=== PATIENT | male | born 1940 ===

== ENCOUNTER 2017-12-22 10:47 | Observation (INO) | payer BC ==
[2017-12-22 11:51] LABS: BASO % 0.5 % (0.0-2.0); EOS # 0.2 K/uL (0.0-0.7); HEMOGLOBIN 14.3 g/dL (12.0-18.0); LYMPH # 1.6 K/uL (1.0-4.3); LYMPH % 32.5 % (20.0-40.0); MEAN CELL VOLUME 90.1 fL (80.0-94.0); MEAN CORPUSCULAR HEMOGLOBIN 31.6 pg (27.0-31.0); MEAN PLATELET VOLUME 8.6 fL (7.2-11.7); MONO # 0.4 K/uL (0.0-0.8); MONO % 8.4 % (0.0-10.0); NEUT # 2.6 K/uL (1.8-7.0); NEUT % 54.6 % (50.0-75.0); RBC 4.52 Mil/uL (4.40-5.90); RED CELL DISTRIBUTION WIDTH 14.6 % (11.5-14.5); WHITE BLOOD COUNT 4.8 K/uL (4.8-10.8)
[2017-12-22 12:02] LABS: PROTHROMBIN TIME 10.8 SECONDS (9.7-12.2)
[2017-12-22 12:04] LABS: ALBUMIN 3.9 g/dL (3.5-5.0); ALT/SGPT 15 U/L (21-72); AST/SGOT 19 U/L (17-59); BLOOD UREA NITROGEN 22 mg/dL (9-20); CALCIUM 8.4 mg/dl (8.6-10.4); GFR AFRICAN-AMERICAN > 60; GFR NON-AFRICAN AMERICAN > 60
[2017-12-22 12:17] LABS: B-TYPE NATRIURETIC PEPTIDE 38.6 pg/mL (0-900); CK-MB 0.49 ng/mL (0.0-3.38)
[2017-12-22] MEDS ORDERED: Aspirin 325 mg EC Tablets PO ONE (13:01)
--- NOTE | 2017-12-22 13:35 | C.PDOC ---
History Of Present Illness 77-year-old male presents to the emergency department with complaints of intermittent palpitations, shortness of breath and pain in the left arm radiating to his jaw x1 week. Patient has no known medical problems, but has not seen a doctor in "years." He denies cough, fever, falls/injuries, abdominal pain, nausea/vomiting. Time Seen by Provider: 12/22/17 10:56 Chief Complaint (Nursing): Palpitations History Per: Patient History/Exam Limitations: no limitations Current Symptoms Are (Timing): Still Present Severity: Moderate Past Medical History Reviewed: Historical Data, Nursing Documentation, Vital Signs Vital Signs: Last Vital Signs Temp 98 F 12/23/17 15:53 Pulse 64 12/23/17 15:53 Resp 18 12/23/17 15:53 BP 129/74 12/23/17 15:53 Pulse Ox 95 12/23/17 15:53 - Medical History PMH: No Chronic Diseases Surgical History: Appendectomy Family History: States: No Known Family Hx - Social History Hx Alcohol Use: Yes Hx Substance Use: No - Immunization History Hx Tetanus Toxoid Vaccination: No Hx Influenza Vaccination: No Hx Pneumococcal Vaccination: No Review Of Systems Except As Marked, All Systems Reviewed And Found Negative. Constitutional: Negative for: Fever, Chills Cardiovascular: Positive for: Palpitations. Negative for: Chest Pain Respiratory: Positive for: Shortness of Breath. Negative for: Cough Gastrointestinal: Negative for: Nausea, Vomiting, Abdominal Pain Genitourinary: Negative for: Rash Musculoskeletal: Positive for: Arm Pain, Other (jaw pain). Negative for: Neck Pain, Back Pain Skin: Negative for: Rash Neurological: Negative for: Weakness, Numbness, Headache, Dizziness Physical Exam - Physical Exam Appears: Well, Non-toxic, No Acute Distress Skin: Normal Color, Warm, Dry, No Rash Head: Normacephalic Eye(s): bilateral: Normal Inspection Oral Mucosa: Moist Cardiovascular: Rhythm Regular Respiratory: Normal Breath Sounds, No Rales, No Rhonchi, No Wheezing Gastrointestinal/Abdominal: Normal Exam, Bowel Sounds, Soft, No Tenderness Back: Normal Inspection, No CVA Tenderness Extremity: No Pedal Edema, No Calf Tenderness Neurological/Psych: Oriented x3 ED Course And Treatment - Laboratory Results Result Diagrams: 12/23/17 07:58 12/23/17 07:50 ECG: Interpreted By Me, Viewed By Me (NSR 62 bpm, normal axis, no acute ST/T wave changes) ECG Rhythm: Sinus Rhythm ECG Interpretation: Normal Rate From EC O2 Sat by Pulse Oximetry: 98 (RA) Pulse Ox Interpretation: Normal Progress Note: Bloodwork EKG ordered and reviewed. Patient given PO Aspirin. Symptoms concerning for cardiac etiology of pain, and patient has no PMD/ anesthesia attending. Will keep for chest pain observation. - Physician Consult Information Physician Contacted: Li Macias Outcome Of Conversation: Discussed patient with medicine internal control consultant, agrees with obs tele for chest pain, palpitations, dyspnea. Disposition - Disposition Disposition: HOSPITALIZED Disposition Time: 15:00 Condition: STABLE - Clinical Impression Clinical Impression: Chest pain, Dyspnea, Palpitations - Scribe Statement The provider has reviewed the documentation as recorded by the Scribe (Najma Resendiz) All medical record entries made by the Scribe were at my direction and personally dictated by me. I have reviewed the chart and agree that the record accurately reflects my personal performance of the history, physical exam, medical decision making, and the department course for this patient. I have also personally directed, reviewed, and agree with the discharge instructions and disposition. Decision To Admit - Pt Status Changed To: Hospital Disposition Of: Observation - . Bed Request Type: Telemetry Admitting Physician: Li Macias Patient Diagnosis: Palpitations, Chest pain, Dyspnea
[2017-12-22 22:38] LABS: CK-MB 0.42 ng/mL (0.0-3.38)
[2017-12-23 03:56] LABS: CK-MB 0.33 ng/mL (0.0-3.38)
--- NOTE | 2017-12-23 07:59 | CP.PCM.CON ---
<Ortiz Nash - Last Filed: 12/23/17 14:40> History of Present Illness - History of Present Illness History of Present Illness: Cardiology Consult note for Dr. Tirso Nash PGY-1 CC: Chest Pain HPI: Patient is a 77 year old male with reports no significant medical history who presented to [facility] ED complaining of 1 week of pain in his left neck and 2 day history of chest pain. Patient reports that he has been experiencing intermittent sharp mid-sternal chest pain rated 4/10 with out radiation of pain for the past two days. Patient indicates that he has never experienced similar chest pain for this long. 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 He denies shortness of breath with this presentation or prior to arrival. Associated symptoms include palpitations for which have been ongoing for at least the past week. Patient reports intermittent episodes associated with rest and activity. Pt denies any hx of arrhythmia or atrial fibrillation. Patient reports he has not seen a doctor in a long time and has not been evaluated medically. Patient denies any recent trauma, sudden movements , muscle strain, headache, change in vision, shortness of breath, abdominal pain , leg swelling, nausea, vomiting, fever, chills, diarrhea or constipation. 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 Review of Systems - Review of Systems All systems: reviewed and no additional remarkable complaints except (as mentioned in HPI) Past Patient History - Past Social History Smoking Status: Former Smoker Alcohol: Social Drugs: Denies - PSYCHIATRIC Hx Substance Use: No - SURGICAL HISTORY Hx Appendectomy: Yes - ANESTHESIA Hx Anesthesia: Yes Hx Anesthesia Reactions: No Meds Allergies/Adverse Reactions: Allergies Allergy/AdvReac Type Severity Reaction Status Date / Time Penicillins Allergy ANAPHYLAXIS Verified 12/22/17 10:55 - Medications Medications: Current Medications Aspirin (Aspirin) 325 mg PO DAILY DNATE Enoxaparin Sodium (Lovenox) 40 mg SC DAILY DANTE Famotidine (Pepcid) 40 mg PO DAILY DANTE Physical Exam - Constitutional Appears: Non-toxic, No Acute Distress - Head Exam Head Exam: ATRAUMATIC, NORMAL INSPECTION, NORMOCEPHALIC - Eye Exam Eye Exam: EOMI, PERRL - ENT Exam ENT Exam: Mucous Membranes Moist - Respiratory Exam Respiratory Exam: Clear to Auscultation Bilateral, NORMAL BREATHING PATTERN. absent: Rhonchi, Wheezes, Stridor - Cardiovascular Exam Cardiovascular Exam: +S1, +S2. absent: Irregular Rhythm - GI/Abdominal Exam GI & Abdominal Exam: Normal Bowel Sounds, Soft. absent: Firm, Guarding, Tenderness - Extremities Exam Extremities exam: Positive for: normal inspection, pedal pulses present. Negative for: calf tenderness, pedal edema, tenderness - Neurological Exam Neurological exam: Alert, CN II-XII Intact, Normal Gait, Oriented x3, Reflexes Normal - Psychiatric Exam Psychiatric exam: Normal Affect, Normal Mood - Skin Skin Exam: Dry, Intact Results - Vital Signs Recent Vital Signs: Last Vital Signs Temp 98.2 F 12/23/17 00:00 Pulse 67 12/23/17 01:00 Resp 22 12/23/17 00:00 BP 172/89 H 12/22/17 20:53 Pulse Ox 97 12/23/17 00:00 - Labs Result Diagrams: 12/23/17 07:58 12/23/17 07:50 Labs: Laboratory Results - last 24 hr 12/22/17 12/22/17 12/22/17 11:42 11:42 11:42 WBC 4.8 RBC 4.52 Hgb 14.3 Hct 40.7 MCV 90.1 MCH 31.6 H MCHC 35.0 RDW 14.6 H Plt Count 198 MPV 8.6 Neut % (Auto) 54.6 Lymph % (Auto) 32.5 Barry % (Auto) 8.4 Eos % (Auto) 4.0 Baso % (Auto) 0.5 Neut # (Auto) 2.6 Lymph # (Auto) 1.6 Barry # (Auto) 0.4 Eos # (Auto) 0.2 Baso # (Auto) 0.0 PT 10.8 INR 1.0 APTT 33 Sodium 137 Potassium 4.1 Chloride 102 Carbon Dioxide 24 Anion Gap 15 BUN 22 H Creatinine 0.8 Est GFR ( Amer) > 60 Est GFR (Non-Af Amer) > 60 Random Glucose 118 H Calcium 8.4 L Total Bilirubin 0.6 AST 19 ALT 15 L Alkaline Phosphatase 82 Total Creatine Kinase 56 CK-MB (Mass) 0.49 Troponin I 0.0140 NT-Pro-B Natriuret Pep 38.6 Total Protein 8.0 Albumin 3.9 Globulin 4.1 H Albumin/Globulin Ratio 1.0 TSH 3rd Generation 12/22/17 12/22/17 12/23/17 12:54 22:12 03:29 WBC RBC Hgb Hct MCV MCH MCHC RDW Plt Count MPV Neut % (Auto) Lymph % (Auto) Barry % (Auto) Eos % (Auto) Baso % (Auto) Neut # (Auto) Lymph # (Auto) Barry # (Auto) Eos # (Auto) Baso # (Auto) PT INR APTT Sodium Potassium Chloride Carbon Dioxide Anion Gap BUN Creatinine Est GFR ( Amer) Est GFR (Non-Af Amer) Random Glucose Calcium Total Bilirubin AST ALT Alkaline Phosphatase Total Creatine Kinase 53 L 49 L CK-MB (Mass) 0.42 0.33 Troponin I < 0.0120 < 0.0120 NT-Pro-B Natriuret Pep Total Protein Albumin Globulin Albumin/Globulin Ratio TSH 3rd Generation 1.16 Assessment & Plan - Assessment and Plan (Free Text) Assessment: 77 year old male with no significant past medical history who presents to [facility] ED by complaining of 1 week history of left sided neck pain and 2 day history of mid-sternal chest pain. Patient initial EKG shows normal sinus rhythm with no ST elevations or depressions, troponins negative x3. Patient is admitted to medical/surgical floor for continued medical management and evaluation. Plan: 1. Chest Pain Details: - History of 1 week of left sided neck pain, 2 day history of chest pain - History of chest discomfort with physical activity - ASA given in ED, Lovenox DVT ppx - Risk Factors include previous smoking, age - Troponin negative x3 Plan: - follow up pending labwork - further work up of chest pain etiology with inpatient stress test - Walking stress test initial interpretation is benign - medically manage patient at this time - Place patient on ASA, beta valerio, and statin - Follow up in office outpatient 2. Palpitations Details: -1 week history of palpitations -denies previous episodes - EKG showing normal sinus rhythm, patient currently denying symptoms Plan: -Continue to monitor symptoms and rhythm 3. Hyperlipidemia Details: - Elevated Cholesterol of 204, LDL 109, TG 194, HDL 53 Plan: -moderate to high intensity dose statin due to ASCVD risk >19.3% -diet and exercise 4. Hypertension Details: - BP trended and shown to have elevation vs. normotensive - AM BP 144/89 Plan: -Continue to monitor -HHD, diet and exercise -Beta valerio Will sign off on patient as of now, stable from cardiac standpoint, plan to follow up patient outpatient in office upon discharge DVT ppx: Lovenox, SCDs GI ppx: Pepcid Further recommendations per Dr. Tirso Nash PGY-1 - Date & Time Date: 12/23/17 Time: 07:05 <Tavo Chahal - Last Filed: 12/23/17 18:10> Meds - Medications Medications: Current Medications Aspirin (Aspirin Chewable) 81 mg PO DAILY [facility] Enoxaparin Sodium (Lovenox) 40 mg SC DAILY [facility] Last Admin: 12/23/17 10:18 Dose: 40 mg Famotidine (Pepcid) 40 mg PO DAILY [facility] Last Admin: 12/23/17 10:18 Dose: 40 mg Metoprolol Succinate (Toprol Xl) 25 mg PO DAILY [facility] Rosuvastatin Calcium (Crestor) 10 mg PO [facility] Results - Vital Signs Recent Vital Signs: Last Vital Signs Temp 98 F 12/23/17 15:53 Pulse 64 12/23/17 15:53 Resp 18 12/23/17 15:53 BP 129/74 12/23/17 15:53 Pulse Ox 98 12/23/17 17:31 - Labs Result Diagrams: 12/23/17 07:58 12/23/17 07:50 Labs: Laboratory Results - last 24 hr 12/22/17 12/23/17 12/23/17 22:12 03:29 07:50 WBC RBC Hgb Hct MCV MCH MCHC RDW Plt Count MPV Sodium Potassium Chloride Carbon Dioxide Anion Gap BUN Creatinine Est GFR ( Amer) Est GFR (Non-Af Amer) Random Glucose Hemoglobin A1c Calcium Iron TIBC % Saturation Total Creatine Kinase 53 L 49 L 45 L CK-MB (Mass) 0.42 0.33 0.31 Troponin I < 0.0120 < 0.0120 0.0140 Triglycerides 194 H Cholesterol 204 H LDL Cholesterol Direct 109 HDL Cholesterol 53 Vitamin B12 239 Folate 12.4 TSH 3rd Generation 12/23/17 12/23/17 12/23/17 07:50 07:58 07:58 WBC RBC Hgb Hct MCV MCH MCHC RDW Plt Count MPV Sodium 138 Potassium 4.2 Chloride 103 Carbon Dioxide 23 Anion Gap 16 BUN 19 Creatinine 0.8 Est GFR ( Amer) > 60 Est GFR (Non-Af Amer) > 60 Random Glucose 92 Hemoglobin A1c 5.6 Calcium 8.7 Iron 129 TIBC 355 % Saturation 36 Total Creatine Kinase CK-MB (Mass) Troponin I Triglycerides Cholesterol LDL Cholesterol Direct HDL Cholesterol Vitamin B12 Folate TSH 3rd Generation 2.44 12/23/17 07:58 WBC 3.8 L RBC 4.58 Hgb 14.7 Hct 41.1 MCV 89.7 MCH 32.0 H MCHC 35.7 RDW 14.5 Plt Count 192 MPV 8.6 Sodium Potassium Chloride Carbon Dioxide Anion Gap BUN Creatinine Est GFR ( Amer) Est GFR (Non-Af Amer) Random Glucose Hemoglobin A1c Calcium Iron TIBC % Saturation Total Creatine Kinase CK-MB (Mass) Troponin I Triglycerides Cholesterol LDL Cholesterol Direct HDL Cholesterol Vitamin B12 Folate TSH 3rd Generation Attending/Attestation - Attestation I have personally seen and examined this patient.: Yes I have fully participated in the care of the patient.: Yes I have reviewed all pertinent clinical information: Yes Notes (Text): 12/23/17 18:09 77 year old male presenting with CP Exercise treadmill test using cuco protocol - good tolerance with no evidence of ischemia stable to ia home on asa, bb, statins outpt f/u in 1-2 weeks
[2017-12-23 08:05] LABS: HEMOGLOBIN 14.7 g/dL (12.0-18.0); MEAN CELL VOLUME 89.7 fL (80.0-94.0); MEAN CORPUSCULAR HGB CONC 35.7 g/dL (33.0-37.0); MEAN PLATELET VOLUME 8.6 fL (7.2-11.7); RBC 4.58 Mil/uL (4.40-5.90); RED CELL DISTRIBUTION WIDTH 14.5 % (11.5-14.5); WHITE BLOOD COUNT 3.8 K/uL (4.8-10.8)
[2017-12-23 08:23] LABS: IRON 129 ug/dL (49-181)
[2017-12-23 08:29] LABS: BLOOD UREA NITROGEN 19 mg/dL (9-20); CALCIUM 8.7 mg/dl (8.6-10.4); GFR AFRICAN-AMERICAN > 60; GFR NON-AFRICAN AMERICAN > 60
[2017-12-23 08:33] LABS: CK-MB 0.31 ng/mL (0.0-3.38); TROPONIN I 0.014 ng/mL (0.00-0.120)
[2017-12-23 08:37] LABS: % IRON SATURATION 36 (20-55); TOTAL IRON BINDING CAPACITY 355 ug/dL (250-450)
[2017-12-23 09:26] LABS: FOLATE 12.4 ng/mL
--- NOTE | 2017-12-23 09:40 | HP ---
CHIEF COMPLAINT: Chest pain, palpitation. HISTORY OF PRESENT ILLNESS: Mr. Loredo is a 77-year-old male, came to the emergency department complaining of intermittent palpitation, chest pain, shortness of breath, and pain in the left arm radiating to his jaw since one week. The patient has no known medical problem but has not been seeing doctor in years. The patient denies any cough, fever or chills. No nausea, vomiting, or diarrhea. No hematuria, no hematochezia. No injury to the chest. PAST MEDICAL HISTORY: Appendectomy. FAMILY HISTORY: Father and mother, noncontributory. HABITS: Alcohol, yes. No smoking. No drugs. ALLERGIES: THE PATIENT IS ALLERGIC TO PENICILLIN. HOME MEDICATIONS: Denied. REVIEW OF SYSTEMS: The patient is seen and examined at the bedside, looking comfortable. No nausea, vomiting, or diarrhea. No hematuria or hematochezia. No headache or dizziness. No chest pain. No palpitations. No fever. No chills. PHYSICAL EXAMINATION: VITAL SIGNS: Temperature 97.8, pulse 57, blood pressure 170/89, respiratory rate 18. HEENT: Head, normocephalic and atraumatic. Eyes: PERRLA. Extraocular muscles intact. Conjunctivae clear. Nose patent. NECK: Supple. No carotid bruit. No JVD or thyromegaly. CHEST: Bilaterally symmetrical. HEART: S1 and S2 positive. LUNGS: Clear to auscultation. ABDOMEN: Soft. Bowel sounds positive. No organomegaly. EXTREMITIES: No edema. No cyanosis. NEUROLOGICAL: The patient is awake, alert, moving all four extremities. No focal deficits. LABORATORY DATA: White blood cells 4.8, hemoglobin 14.3, hematocrit 40.7, and platelets 198. Sodium 137, potassium 4.1, BUN 22, creatinine 0.8, glucose 118, calcium 8.4. ASSESSMENT AND PLAN: Mr. Facundo Vega is a 77-year-old male with hyperglycemia, hypocalcemia, came with palpitation, chest pain. Readmitted the patient, did cardiac enzymes x3. History of appendectomy. Called reporting consultant, Dr. Tavo Chahal. We will give aspirin and Protonix. Heart-healthy diet. Gastrointestinal and deep venous thrombosis prophylaxis. We will follow up. Li Macias MD
[2017-12-23] MEDS: Enoxaparin 40 mg Syringe SC SCH (10:18)
--- NOTE | 2017-12-23 15:05 | CARD ---
APPROVED REPORT Protocol: GERRY Test Type: Treadmill Stress Test Test Indications: CHEST PAIN Medications: LIST SCAN Medical History: CHEST PAIN Target HR: 145 bpm Resting ECG: normal Resting Heart Rate: 93 bpm Resting Blood Pressure: 138/80mmHg submaximum (85%): 123 bpm TEST SUMMARY [id number]. EXERCISESTAGE [id number]. EXERCISESTAGE [id number]. EXERCISESTAGE 303:[id number]. EXERCISESTAGE 401:[id number]/.0. [id number]. POST EXERCISE Reason for Termination: Fatigue Target HR: Yes Max HR: 146 bpm 100% of Maximum Predicted HR: 145 bpm Exercise duration: 10:00 min:sec, 4 Stage Exercise capacity: 13.3METs Max Blood Pressure: 198/80mmHg Blood Pressure response to exercise: normal resting BP - appropriate response Heart Rate response to exercise: appropriate Chest Pain: No, none Angina index: 0 Arrhythmia: No, none ST Change: No, none Deviation: 0 mm INTERPRETATION Stress EKG Conclusion: Normal exercise treadmill stress test with no evidence of ischemia Good exercise tolerance
--- NOTE | 2017-12-24 03:08 | PN ---
DATE: SUBJECTIVE: The patient is a 77-year-old male. The patient is seen and examined at the bedside, looking comfortable. No more chest pain. No headache. No dizziness. No palpitation. No swelling of the leg. No fever. No chills. Went for stress test. PHYSICAL EXAMINATION: VITAL SIGNS: Temperature 98, pulse 61, blood pressure 120/74, respiratory rate 18. HEENT: Head, normocephalic and atraumatic. Eyes: PERRLA. Extraocular muscles intact. Conjunctivae clear. Nose patent. Mucous membranes moist. NECK: Supple. No carotid bruit. No JVD or thyromegaly. CHEST: Bilaterally symmetrical. HEART: S1 and S2 positive. LUNGS: Clear to auscultation. ABDOMEN: Soft. Bowel sounds positive. No organomegaly. EXTREMITIES: No edema. No cyanosis. NEUROLOGICAL: The patient is awake, alert, moving all four extremities. No focal deficits. MEDICATIONS: Aspirin, Crestor, Lovenox, Pepcid, and Toprol. LABORATORY DATA: White blood cells 3.8, hemoglobin 14.7, hematocrit 41.1, platelets 192. Sodium 138, potassium 4.2, BUN 19, and creatinine 0.8. Triglyceride 94, cholesterol 204. ASSESSMENT AND PLAN: Mr. Gary Lroedo is a 77-year-old male with leukopenia, hypercholesterolemia, hypertriglyceridemia, came in with chest pain and palpitation. History of appendectomy. Stress test using Hector protocol, good tolerance with no evidence of ischemia, stable. Will start medication for cholesterol, triglyceride and Tricor. GI and deep venous thrombosis prophylaxis. Repeat labs. Will follow up. Li Macias MD
[2017-12-24 07:43] LABS: BASO # 0.1 K/uL (0.0-0.2); BASO % 1.3 % (0.0-2.0); EOS # 0.2 K/uL (0.0-0.7); EOS % 4.8 % (0.0-4.0); HEMOGLOBIN 14.5 g/dL (12.0-18.0); LYMPH # 1.2 K/uL (1.0-4.3); LYMPH % 29.4 % (20.0-40.0); MEAN CELL VOLUME 89.7 fL (80.0-94.0); MEAN CORPUSCULAR HGB CONC 34.6 g/dL (33.0-37.0); MEAN PLATELET VOLUME 8.7 fL (7.2-11.7); MONO # 0.4 K/uL (0.0-0.8); MONO % 10.5 % (0.0-10.0); NEUT # 2.2 K/uL (1.8-7.0); NRBC % 0.4 % (0.0-2.0); RBC 4.66 Mil/uL (4.40-5.90); RED CELL DISTRIBUTION WIDTH 14.4 % (11.5-14.5); WHITE BLOOD COUNT 4.1 K/uL (4.8-10.8)
[2017-12-24] MEDS: Enoxaparin 40 mg Syringe SC SCH (09:36)
[2017-12-24 09:53] LABS: ALT/SGPT 14 U/L (21-72); AST/SGOT 40 U/L (17-59); BLOOD UREA NITROGEN 21 mg/dL (9-20); CALCIUM 8.8 mg/dl (8.6-10.4); GFR AFRICAN-AMERICAN > 60; GFR NON-AFRICAN AMERICAN > 60
[2017-12-24] MEDS ORDERED: Metoprolol Succinate 25 mg XL Tab PO SCH (10:00)
--- NOTE | 2017-12-24 11:05 | CP.PCM.PN ---
Subjective - Date & Time of Evaluation Date of Evaluation: 12/24/17 Time of Evaluation: 10:56 - Subjective Subjective: PATIENT AAOX3 DENIES CHEST PAIN/ SOB / NAUSEA / OR VOMITING NO SIGN OF ACUTE DISTRESS NOTED Objective - Vital Signs/Intake and Output Vital Signs (last 24 hours): Temp Pulse Resp BP Pulse Ox 97.9 F 60 21 136/77 96 12/24/17 07:51 12/24/17 07:51 12/24/17 07:51 12/24/17 07:51 12/24/17 07:51 - Medications Medications: Current Medications Aspirin (Aspirin Chewable) 81 mg PO DAILY [facility] Last Admin: 12/24/17 09:36 Dose: 81 mg Enoxaparin Sodium (Lovenox) 40 mg SC DAILY [facility] Last Admin: 12/24/17 09:36 Dose: 40 mg Famotidine (Pepcid) 40 mg PO DAILY [facility] Last Admin: 12/24/17 09:36 Dose: 40 mg Fenofibrate (Tricor) 145 mg PO QPM [facility] Metoprolol Succinate (Toprol Xl) 25 mg PO DAILY [facility] Last Admin: 12/24/17 09:36 Dose: 25 mg Rosuvastatin Calcium (Crestor) 10 mg PO HS [facility] Last Admin: 12/23/17 21:43 Dose: 10 mg - Labs Labs: 12/24/17 07:13 12/24/17 07:13 PT 10.8 SECONDS (9.7-12.2) 12/22/17 11:42 INR 1.0 12/22/17 11:42 APTT 33 SECONDS (21-34) 12/22/17 11:42 Assessment and Plan - Assessment and Plan (Free Text) Assessment: PATIENT SEEN AND EXAMINED AT THE BEDSIDE LUNG SOUND CLEAR TNI X 3 IS NEG STRESS TEST IS NORMAL CHOLESTEROL AND TRIGLYCERIDE WAS ELEVATED NO SIGN OF DISTRESS NOTED DISCUSS WITH DR OVIEDO WHO CLEAR FOR DC FOLLOW UP WITH DR OVIEDO 1-2 WEEK AT HIS OFFICE ----CALL FOR APPOINTMENT FOLLOW UP WITH DR JUSTICE 1-2 WEEK AT HIS OFFICE ---CALL FOR APPOINTMENT CONTINUE YOUR HOME MEDICATION NEW PRESCRIPTION GIVEN ASPIRIN 81 MG BY MOUTH DAILY PEPCID 40 MG BY MOUTH DAILY TRICOR 145 MG BY MOUTH DAILY TOPROL XL 25 MG BY MOUTH DAILY CRESTOR 10 MG BY MOUTH DAILY ACTIVITY TOLERATED CALL DR OVIEDO OR DR JUSTICE OR GO TO THE EMERGENCY ROOM IF SYMPTOMS RETURN OR WORSENING DISCUSS WITH PATIENT WHO AGREE AND VERBALIZED UNDERSTANDING
[2017-12-24 11:13] VITALS: BP 136/77; PULSE 60; TEMP 97.9; O2SAT 96
[2017-12-24 12:00] VITALS: RESP 21
--- NOTE | 2017-12-24 15:33 | CARD ---
APPROVED REPORT EXAM: Two-dimensional and M-mode echocardiogram with Doppler and color Doppler. Other Information Quality : GoodRhythm : NSR INDICATION Dyspnea Chest Pain Palpitations 2D DIMENSIONS IVSd0.9 (0.7-1.1cm)LVDd4.8 (3.9-5.9cm) PWd0.7 (0.7-1.1cm)LVDs2.9 (2.5-4.0cm) FS (%) 40.8 %LVEF (%)71.5 (>50%) M-Mode DIMENSIONS RVDd1.85 (2.1-3.2cm)Left Atrium (MM)2.79 (2.5-4.0cm) IVSd0.88 (0.7-1.1cm)Aortic Root3.61 (2.2-3.7cm) LVDd4.86 (4.0-5.6cm)Aortic Cusp Exc.2.11 (1.5-2.0cm) PWd0.88 (0.7-1.1cm)FS (%) 39 % LVDs2.95 (2.0-3.8cm)LVEF (%)70 (>50%) Aortic Valve AI P 1/2 [id number] Mitral Valve MV E Ipkaveye36.2cm/sMV A Obitvmpv52.0cm/sE/A ratio0.6 TDI E/Lateral E'0.0E/Medial E'0.0 Tricuspid Valve TR Peak [id number]/sTR Peak Gr.[id number] LEFT VENTRICLE The left ventricle is normal size. There is normal left ventricular wall thickness. Left ventricle systolic function is normal. The Ejection Fraction is 60-65%. There is normal LV segmental wall motion. Transmitral Doppler flow pattern is Grade I-abnormal relaxation pattern. There is no ventricular septal defect visualized. RIGHT VENTRICLE The right ventricle is normal size. The right ventricular systolic function is normal. ATRIA The left atrium is mildly dilated. The right atrium size is normal. AORTIC VALVE The aortic valve is mildly sclerotic. The aortic valve is tri-cuspid. There is trace to mild aortic regurgitation. There is no aortic valvular stenosis. MITRAL VALVE The mitral valve is normal in structure. There is no evidence of mitral valve prolapse. Mitral regurgitation is mild. TRICUSPID VALVE The tricuspid valve is normal in structure. There is mild tricuspid regurgitation. Right ventricular systolic pressure is estimated at less than 30 mmHg. There is no pulmonary hypertension. PULMONIC VALVE The pulmonic valve is not well visualized. There is trace pulmonic valvular regurgitation. GREAT VESSELS The aortic root is normal in size. The ascending aorta is normal in size. The IVC is normal in size and collapses >50% with inspiration. PERICARDIAL EFFUSION There is no pericardial effusion. <Conclusion> Left ventricle systolic function is normal. The Ejection Fraction is 60-65%. Transmitral Doppler flow pattern is Grade I-abnormal relaxation pattern. There is trace to mild aortic regurgitation. Mitral regurgitation is mild.
== END 2017-12-24 12:14 | disposition home or self-care (01) ==
LOC: C.ER 10:47 → C.9E 15:00 → C.5S 17:07
PROVIDERS: ADMIT Internal Medicine; ATTEND Internal Medicine
DX: R07.89 Other chest pain (principal); R00.2 Palpitations; E78.00 Pure hypercholesterolemia, unspecified; Z87.891 Personal history of nicotine dependence; E83.51 Hypocalcemia; R06.00 Dyspnea, unspecified
CPT/HCPCS: 36415; 80048; 80053; 80061; 82550; 82553; 82607; 82746; 83036; 83540; 83550; 83880; 84443; 84484; 85025; 85027; 85610; 85730; 93017; 93306; 99285; G0378; J1650